=== PATIENT | female | born 1995 | race Two or more races ===

== ENCOUNTER 2024-05-17 18:56 | Emergency (ER) | payer MEDICAID, OTHER ==
[2024-05-17] MEDS ORDERED: DOCO200C4 PO (20:21)
== END 2024-05-17 19:10 | disposition left against medical advice (07) ==
LOC: ER 18:56
DX: O26.899 Other specified pregnancy related conditions, unspecified trimester (principal); R10.9 Unspecified abdominal pain; Z3A.00 Weeks of gestation of pregnancy not specified; Z53.21 Procedure and treatment not carried out due to patient leaving prior to being seen by health care provider

== ENCOUNTER 2024-05-17 19:41 | Observation (INO) | payer MEDICAID ==
[~2024-05-17] VITALS: Ht 154.9 cm; Wt 94.8 kg
[2024-05-17] MEDS ORDERED: DOCO200C4 PO (20:21)
== END 2024-05-17 21:35 | disposition home or self-care (01) ==
LOC: LDRP 19:41
PROVIDERS: ADMIT Obstetrics & Gynecology; ATTEND Obstetrics & Gynecology
DX: O26.892 Other specified pregnancy related conditions, second trimester (principal); R10.9 Unspecified abdominal pain; R05.9 Cough, unspecified; R09.81 Nasal congestion; Z3A.23 23 weeks gestation of pregnancy
CPT/HCPCS: 59025; 81002; 94760; G0378

== ENCOUNTER 2024-07-01 15:28 | Observation (INO) | payer MEDICAID ==
[~2024-07-01] VITALS: Ht 165.1 cm; Wt 90.7 kg
[~2024-07-01 15:28] MED LIST: DOCO200C4 PO
[2024-07-01] MEDS ORDERED: ONDANSETRON HCL 4 MG/2 ML VIAL IM ONE (16:30)
[2024-07-01] MEDS: LACTATED RINGER'S 1,000 ML IV ONE (16:45)
[2024-07-01] MEDS: ONDANSETRON HCL 4 MG/2 ML VIAL IV ONE (16:58)
== END 2024-07-01 17:42 | disposition home or self-care (01) ==
LOC: LDRP 15:28
PROVIDERS: ADMIT Obstetrics & Gynecology; ATTEND Obstetrics & Gynecology
DX: O36.8130 Decreased fetal movements, third trimester, not applicable or unspecified (principal); O21.2 Late vomiting of pregnancy; Z3A.29 29 weeks gestation of pregnancy
CPT/HCPCS: 59025; 76805; 76817; 81002; 96361; 96374; G0378; J2405; 96360

== ENCOUNTER 2024-09-07 19:59 | Observation (INO) | payer MEDICAID ==
--- NOTE | 2024-09-07 21:29 | DVHDS2 ---
Physician Discharge Progress N Final Diagnosis: Decreased movements Operations or Procedures: Operations or Procedures NST/BPP/PHILIP all WNL Nuchal cord seen PHILIP 8.1 cm Condition on Discharge: Stable Disposition: Home Discharge Instructions: Diet: Regular Activity: Light activity Follow Up/Referral: Repeat NST/BPP PHILIP in 3-4 days, trend PHILIP level Daily FKC, return if decreased FM Medications: N/A Follow Up Care: Discharge Statement: "Patient was advised to return to the ER or call 911 if any headaches, dizziness, shortness of breath, chest pain, abdominal pain, bleeding, fevers, or worsening of medical condition. Patient was counseled about treatment plan, medications, possible side effects, patientverbalized understanding. All questions were answered to the best of my ability. This discharge took greater then 30 minutes in planning, reviewing documentation, counseling the patient, and discussing with other team members." XAVI ROSSI DO Sep 07, 2024 21:28
--- NOTE | 2024-09-07 21:37 | DVH ---
ULTRASOUND BIOPHYSICAL PROFILE CLINICAL HISTORY: decreased movement COMPARISON: 07/01/2024 TECHNIQUE: Real-time grayscale, color flow and M-mode imaging of the gravid uterus is performed. FINDINGS: Single living intrauterine gestation. heart rate 151 beats per minute. Cephalic positioning. Nuchal cord is noted. Placenta is fundal. No definite evidence of abruption or previa at this time. Amniotic fluid index: 8.1cm Biophysical profile: 8 out of 8. (2 breathing, 2 activity, 2 tone, 2 PHILIP) IMPRESSION: Biophysical profile scoring 8 out of 8. Nuchal cord.
[2024-09-07] MEDS ORDERED: PREN-96 PO (22:32)
== END 2024-09-07 22:55 | disposition home or self-care (01) ==
LOC: LDRP 19:59
PROVIDERS: ADMIT Obstetrics & Gynecology; ATTEND Obstetrics & Gynecology
DX: O36.8130 Decreased fetal movements, third trimester, not applicable or unspecified (principal); Z3A.39 39 weeks gestation of pregnancy; Z79.899 Other long term (current) drug therapy
CPT/HCPCS: 59025; 76818; 81002; 94760; G0378

== ENCOUNTER 2024-09-10 14:35 | Inpatient (IN) | payer MEDICAID ==
[~2024-09-10] VITALS: Ht 154.9 cm; Wt 99.8 kg
[~2024-09-10 14:35] MED LIST changes: +PREN-96 PO
[2024-09-10] MEDS ORDERED: LIDOCAINE 2%HCL (LOCAL ANESTH.) INJ 20ML MDV IJ PRN (15:00)
[2024-09-10] MEDS ORDERED: BUTORPHANOL TARTRATE 2 MG/1 ML VIAL IV PRN ×2 (15:00)
--- NOTE | 2024-09-10 16:02 | DVH ---
BIOPHYSICAL PROFILE HISTORY: decreased movement TECHNIQUE: Multiple transabdominal real-time grayscale sonographic images through the gravid uterus of the fetus with duplex Doppler color flow and M-mode spectral analysis FINDINGS: BIOPHYSICAL PROFILE: breathing score: 2/2 movement score: 2/2 tone score: 2/2 Quantitative PHILIP score: 2/2 (PHILIP: 7.7 Cm.) Total score: 8/8 The cervix close Single live fetus in cephalic presentation. heart rate 145 beats per minute. placenta without previa or abruption IMPRESSION: 1. Biophysical profile score: 8/8
[2024-09-10 16:23] LABS: Basophils # (auto) 0 10 ^3/uL (0-0.2); Basophils % (auto) 0.2 % (0.0-2.0); Eosinophils # (auto) 0 10 ^3/uL (0-0.8); Eosinophils % (auto) 0.6 % (0.0-7.0); Hematocrit 37.7 % (36.0-46.0); Hemoglobin 12.5 g/dL (12.2-16.2); Lymphocytes # (auto) 1.4 10 ^3/uL (0.4-5.4); Lymphocytes % (auto) 15.9 % (10.0-50.0); Mean Corpuscular Hgb Conc. 33.1 g/dL (32.0-36.0); Mean Corpuscular Volume 81.7 fL (80.0-100.0); Monocytes # (auto) 0.7 10 ^3/uL (0-1.3); Monocytes % (auto) 8.4 % (0.0-12.0); Neutrophils # (auto) 6.6 10 ^3/uL (1.6-8.6); Neutrophils % (auto) 74.9 % (37.0-80.0); Platelet Count (auto) 240 10^3/uL (140-450); Red Blood Cells 4.61 10^6/uL (4.0-5.20); Red Cell Distribution Width 16.1 % (11.8-14.3); White Blood Cell 8.8 10^3/uL (4.4-10.8)
[2024-09-10 16:36] LABS: INR 0.92 (0.9-1.15); Partial Thromboplastin Time 25.8 SEC (24.5-34.5); Prothrombin Time 9.8 sec (9.3-11.8)
[2024-09-10 16:41] LABS: Alanine Aminotransferase 17 U/L (7-40); Anion Gap 8 (5-15); Aspartate Aminotransferase 24 U/L (13-40); BUN/Creatinine Ratio 14.8 (10.0-20.0); Calcium 9.8 mg/dL (8.7-10.4); Carbon Dioxide 23 mmol/L (20-31); Potassium 3.9 mmol/L (3.5-5.1); Sodium 138 mmol/L (136-145); Total Protein 6.8 g/dL (5.7-8.2)
--- NOTE | 2024-09-10 16:41 | DVHHP2 ---
OB CC & HPI Date Date of Admission: Sep 10, 2024 Patient Identification: : 3 Para: 2 EDC: Sep 10, 2024 EGA: 40.0 Chief Complaints: Reason for admission: induction of labor History of Present Complaints Scheduled Induction by primary OB MD, Dr. Mejia due to borderline PHILIP on last visit and slightly elevated BP's. BP's are normal now, and no symptoms of pre-eclampsia. PIH labs are pending. PHILIP is 7.7 cm, denies PROM. Has had normal growth. GBS neg Past Medical History Cardiac: No pertinent Hx Pulmonary: No pertinent Hx Central Nervous System: No pertinent Hx GI: No pertinent Hx Hemotology/Oncology: No pertinent Hx Hepatobiliary: No pertinent Hx Psychiatric: No pertinent Hx Musculoskeletal: No pertinent Hx Rheumotologic: No pertinent Hx Infectious Disease: No peritnent Hx ENT: No pertinent Hx Renal/: No pertinent Hx Endocrine: No pertinent Hx Dermatology: No pertinent Hx Past Surgical History: No pertinent Hx OB History OB History Care: Good Care Ultrasounds: Normal mid trimester US Obstetrical Complications: None Medical Complications: None Allergies: Coded Allergies: NO KNOWN ALLERGIES (Unverified , 05/17/24) Home Meds Reported Medications Vit W/ Ferrous Fumara ( One Daily) Daily Tab, 1 TAB PO DAILY, #90 TAB 3 Refills 09/07/24 Docosahexaenoic Acid ( DHA) 200 Mg Cap, 200 MG PO, CAP 05/17/24 Current Medications Current Medications Medications (Trade) Dose Ordered Sig/Tomi Route PRN Reason Start Time Stop Time Status Last Admin Lactated Ringer's 1,000 ml @ 125 mls/hr Q8H IV 09/10/24 15:00 UNV Freddie Merlyn (Tucks) 1 pad PRN PRN TOP PERINEAL AREA DISCOMFORT 09/10/24 15:00 UNV Sodium Lauryl Sulfate (Phisoderm) 240 ml PRN PRN TOP PERINEAL AREA DISCOMFORT 09/10/24 15:00 UNV Benzocaine (Dermoplast) 1 applic PRN PRN TOP PERINEAL AREA DISCOMFORT 09/10/24 15:00 UNV Butorphanol Tartrate (Stadol Injection) 1 mg Q4HPRN PRN IV MODERATE PAIN (4-6 PAIN SCALE) 09/10/24 15:00 UNV Butorphanol Tartrate (Stadol Injection) 2 mg Q4HPRN PRN IV SEVERE PAIN (7-10 PAIN SCALE) 09/10/24 15:00 UNV Misoprostol (Cytotec) 50 mcg Q4HPRN PRN PO CERVICAL RIPENING 09/10/24 15:00 UNV Lidocaine HCl (Xylocaine) 20 ml ONCE PRN IJ PERINEAL AREA DISCOMFORT 09/10/24 15:00 UNV Family & Social History Family/Social History Rubella: immune RPR/VDRL: Negative GBS Status: Negative HBsAG: Negative Review of Systems Constitutional: No symptom reported Ears, Nose, & Throat: No symptom reported Eyes: No symptom reported Pulmonary/Respiratory: No symptom reported Cardiovascular: No symptom reported Gastrointestinal: No symptom reported Genitourinary: No symptom reported Musculoskeletal: No symptom reported Skin: No symptom reported Psychiatric: No symptom reported Endocrine: No symptom reported Hemotologic/Lymphatic: No symptom reported OB Admission Exam Physical Exam Vitals: Afeb VS stable HEENT: TMs Normal, Fontanelles Normal, Nasal Mucosa Normal, Eyes non-injected, Oropharynx Normal, PERRLA, Moist Membranes, EOMI Heart: Rhythm Normal Lungs: Clear Abdomen: Non tender Extremities: Normal Reflexes: Normal Pelvic Exam: RN exam 1/ 40%/-2 VTX Cervical Dilatation: 1cm Station: -2 Heart Rate: 130's Accelerations: Accelerations Present Decelerations: No Decelerations Short Term Variability: Present Chummer Variability: Average (6-25) Contractions on Admission: None OB Plan Plan Admitting Diagnosis: Induction of labor , IUP 40 wk PHILIP 7.7 cm, no PROM GBS neg Plan: Induction Induction Methd: Misoprostol protocol Other Plan: Admit for labor induction per Dr. Mejia for "borderline PHILIP" R/B/A discussed w/ patient, Informed consent obtained indications for Vacuum delivery, or C/S discussed. XAVI ROSSI DO Sep 10, 2024 16:41
[2024-09-10] MEDS ORDERED: LACT. RINGERS/OXYTOCIN 20UNITS 500 ML IV ONE ×2 (16:45→17:15)
[2024-09-10 16:49] LABS: Alkaline Phosphatase 253 U/L (46-116); Bilirubin, Total 0.3 mg/dL (0.2-1.0); Blood Urea Nitrogen 8 mg/dL (9-23); Chloride 107 mmol/L (98-107); Glucose 71 mg/dL (74-106)
[2024-09-10] MEDS: miSOPROStol 50 MCG per PRE-CUT 1/2 TAB PO PRN (17:07)
[2024-09-10 17:36] LABS: Urine Bacteria FEW /hpf (None Seen); Urine Blood Negative /uL (Negative); Urine Clarity Clear (Clear); Urine Color Colorless (Yellow); Urine Protein, UAD Negative (Negative); Urine Specific Gravity 1.005 (1.001-1.035); Urine Squamous Epithelial Cell FEW /hpf (<5); Urine Urobilinogen Normal (Negative); Urine WBC 1 /hpf (0 - 5); Urine pH 5.5 (5.0-9.0)
[2024-09-10 17:45] LABS: Amphetamine Screen, Urine Neg (NEGATIVE); Barbiturate Scree,Urine Neg (NEGATIVE); Benzodiazephine Screen, Urine Neg (NEGATIVE); Cannabinoid Screen, Urine Neg (NEGATIVE); Cocaine Screen, Urine Neg (NEGATIVE); Opiate Scree,Urine Neg (NEGATIVE); Phencyclidine Screen, Urine Neg (NEGATIVE)
[2024-09-10 18:57] LABS: Creatinine, Urine 24.47 mg/dL (30.0-125.0); Urine Protein/Creatinine Ratio 0.29
[2024-09-10] MEDS ORDERED: TERBUTALINE SULFATE 1 MG/ML 1ML VIAL SC PRN (23:45)
[2024-09-11] VITALS (11 sets, daily range): BP systolic 95–130; BP diastolic 53–94; PULSE 73–88; RESP 16–18; TEMP 97.6–98.4; O2SAT 95–99
--- NOTE | 2024-09-11 05:58 | DVHPN2 ---
OB Labor Progress Note Date and Time Seen Date Seen: Sep 11, 2024 Time Seen: 05:54 Subjective Patient reports: No new complaints Subjective Comment Induction of labor 40+ wk Moderate contractions , mild pain Objective Vital Signs Afeb VS stable Monitoring Method Monitoring Method: External Heart Rate Heart Rate Baseline: 120 Heart Rate Variability: Moderate Presence of FHR Accelerations: Yes Presence of FHR Decelerations: No Contractions Contractions Frequency: Other (3 to 4 in 10 mins) Contractions Intensity: Mild Contractions Resting Tone: Relaxed Membranes Membranes: Intact Vaginal Exam Vag Exam Deferred: Yes (RN Exam: 1-2/40%/ -3) Vaginal Exam Station: -3 Vaginal Exam Presentation: VTX Vaginal Exam Show: None Medications Medications - Pitocin: No Lab Results Lab Results Current Medications Medications (Trade) Dose Ordered Sig/Tomi Start Time Stop Time Status Last Admin Dose Admin Lactated Ringer's 1,000 ml @ 125 mls/hr Q8H 09/10/24 15:00 Freddie Elliottel (Tucks) 1 pad PRN PRN 09/10/24 15:00 Sodium Lauryl Sulfate (Phisoderm) 240 ml PRN PRN 09/10/24 15:00 Benzocaine (Dermoplast) 1 applic PRN PRN 09/10/24 15:00 Butorphanol Tartrate (Stadol Injection) 1 mg Q4HPRN PRN 09/10/24 15:00 Butorphanol Tartrate (Stadol Injection) 2 mg Q4HPRN PRN 09/10/24 15:00 Misoprostol (Cytotec) 50 mcg Q4HPRN PRN 09/10/24 15:00 09/11/24 01:22 50 MCG Lidocaine HCl (Xylocaine) 20 ml ONCE PRN 09/10/24 15:00 Oxytocin 500 ml @ 999 mls/hr Q31M ONCE 09/10/24 16:45 09/10/24 17:15 DC Oxytocin 500 ml @ 125 mls/hr Q4H ONCE 09/10/24 17:15 09/10/24 21:14 DC Oxytocin 1,000 ml @ 6 ml/hr Q24H 09/10/24 23:45 Terbutaline Sulfate (Brethine Inj) 0.25 mg ONCE PRN 09/10/24 23:45 Laboratory Tests Test 09/10/24 15:55 09/10/24 14:58 09/10/24 14:48 Range/Units White Blood Count 8.8 4.4-10.8 10^3/uL Red Blood Count 4.61 4.0-5.20 10^6/uL Hemoglobin 12.5 12.2-16.2 g/dL Hematocrit 37.7 36.0-46.0 % Mean Corpuscular Volume 81.7 80.0-100.0 fL Mean Corpuscular Hemoglobin 27.0 L 28.0-32.0 pg Mean Corpuscular Hemoglobin Concent 33.1 32.0-36.0 g/dL Red Cell Distribution Width 16.1 H 11.8-14.3 % Platelet Count 240 140-450 10^3/uL Mean Platelet Volume 9.4 6.9-10.8 fL Neutrophils (%) (Auto) 74.9 37.0-80.0 % Lymphocytes (%) (Auto) 15.9 10.0-50.0 % Monocytes (%) (Auto) 8.4 0.0-12.0 % Eosinophils (%) (Auto) 0.6 0.0-7.0 % Basophils (%) (Auto) 0.2 0.0-2.0 % Neutrophils # (Auto) 6.6 1.6-8.6 10 ^3/uL Lymphocytes # (Auto) 1.4 0.4-5.4 10 ^3/uL Monocytes # (Auto) 0.7 0-1.3 10 ^3/uL Eosinophils # (Auto) 0 0-0.8 10 ^3/uL Basophils # (Auto) 0 0-0.2 10 ^3/uL Nucleated Red Blood Cells 0.0 % Prothrombin Time 9.8 9.3-11.8 sec Prothrombin Time INR 0.92 0.9-1.15 Activated Partial Thromboplast Time 25.8 24.5-34.5 SEC Sodium Level 138 136-145 mmol/L Potassium Level 3.9 3.5-5.1 mmol/L Chloride Level 107 98-107 mmol/L Carbon Dioxide Level 23 20-31 mmol/L Anion Gap 8 5-15 Blood Urea Nitrogen 8 L 9-23 mg/dL Creatinine 0.54 L 0.550-1.02 mg/dL Glomerular Filtration Rate Calc 127 >90 mL/min BUN/Creatinine Ratio 14.8 10.0-20.0 Serum Glucose 71 L 74-106 mg/dL Uric Acid 4.0 3.1-7.8 mg/dL Calcium Level 9.8 8.7-10.4 mg/dL Total Bilirubin 0.3 0.2-1.0 mg/dL Aspartate Amino Transferase (AST) 24 13-40 U/L Alanine Aminotransferase (ALT) 17 7-40 U/L Alkaline Phosphatase 253 H 46-116 U/L Total Protein 6.8 5.7-8.2 g/dL Albumin 4.0 3.2-4.8 g/dL Rapid Plasma Reagin Pending Treponema pallidum Ab (TP-PA) Pending Hepatitis C Antibody Negative Negative Urine Color Colorless Yellow Urine Clarity Clear Clear Urine pH 5.5 5.0-9.0 Urine Specific [place] 1.005 1.001-1.035 Urine Protein Negative Negative Urine Ketones Negative Negative Urine Blood Negative Negative /uL Urine Nitrite Negative Negative Urine Bilirubin Negative Negative Urine Urobilinogen Normal Negative mg/dL Urine Leukocyte Esterase Trace Negative /uL Urine RBC 1 0 - 4 /hpf Urine WBC 1 0 - 5 /hpf Urine Squamous Epithelial Cells Few <5 /hpf Urine Bacteria Few H None Seen /hpf Urine Glucose Normal Normal mg/dL Urine Opiates Screen Neg NEGATIVE Urine Fentanyl Screen Neg NEGATIVE Urine Barbiturates Screen Neg NEGATIVE Urine Phencyclidine Screen Neg NEGATIVE Urine Amphetamines Screen Neg NEGATIVE Urine Benzodiazepines Screen Neg NEGATIVE Urine Cocaine Screen Neg NEGATIVE Urine Cannabinoids Screen Neg NEGATIVE Urine Creatinine 24.47 L 30.0-125.0 mg/dL Urine Protein/Creatinine Ratio 0.29 Urine Total Protein 7.0 1-14 mg/dL Assessment Assessment Term IUP 40 wk, Induction of labor Plan Plan Continue current care IV pitocin once feasible Pain control Care endorsed to oncoming OB team, Dr. Mejia Plan discussed with: Patient XAVI ROSSI DO Sep 11, 2024 05:58
[2024-09-11] MEDS: LACTATED RINGER'S 1,000 ML IV SCH (06:49)
[2024-09-11] MEDS: LACT. RINGERS/OXYTOCIN 20UNITS 1,000 ML IV SCH (06:51)
[2024-09-11] MEDS: DERMOPLAST 60ML BOTTLE TOP PRN (06:53)
[2024-09-11] MEDS: PHISODERM TOP SOLN 240ML BTL TOP PRN (06:53)
[2024-09-11] MEDS: WITCH HAZEL-GLYCERIN PAD TOP PRN (06:53)
--- NOTE | 2024-09-11 07:27 | DVHPN2 ---
Chief Complaints Patient reports: No new complaints Nursing reports: No new complaints Objective Medications Current Medications Medications (Trade) Dose Ordered Sig/Tomi Route PRN Reason Start Time Stop Time Status Last Admin Benzocaine (Dermoplast) 1 applic PRN PRN TOP PERINEAL AREA DISCOMFORT 09/10/24 15:00 09/11/24 06:53 Butorphanol Tartrate (Stadol Injection) 1 mg Q4HPRN PRN IV MODERATE PAIN (4-6 PAIN SCALE) 09/10/24 15:00 Butorphanol Tartrate (Stadol Injection) 2 mg Q4HPRN PRN IV SEVERE PAIN (7-10 PAIN SCALE) 09/10/24 15:00 Lactated Ringer's 1,000 ml @ 125 mls/hr Q8H IV 09/10/24 15:00 09/11/24 06:49 Lidocaine HCl (Xylocaine) 20 ml ONCE PRN IJ PERINEAL AREA DISCOMFORT 09/10/24 15:00 Misoprostol (Cytotec) 50 mcg Q4HPRN PRN PO CERVICAL RIPENING 09/10/24 15:00 09/11/24 01:22 Oxytocin 1,000 ml @ 6 ml/hr Q24H IV 09/10/24 23:45 09/11/24 06:51 Sodium Lauryl Sulfate (Phisoderm) 240 ml PRN PRN TOP PERINEAL AREA DISCOMFORT 09/10/24 15:00 09/11/24 06:53 Terbutaline Sulfate (Brethine Inj) 0.25 mg ONCE PRN SC Uterine tachysystole 09/10/24 23:45 Freddie Zuleta (Juvenalcks) 1 pad PRN PRN TOP PERINEAL AREA DISCOMFORT 09/10/24 15:00 09/11/24 06:53 Others ve-3cm/80/-2 Studies Laboratory Tests 09/10/24 15:55 Test 09/10/24 15:55 Range/Units Serum Glucose 71 L 74-106 mg/dL Ass/Plan Assessment labor Plan start JESSENIA Nation DO Sep 11, 2024 07:27
[2024-09-11 08:06] LABS: RPR Non Reactive (Non Reactive)
[2024-09-11] MEDS ORDERED: LIDOCAINE HCL 2 %PF INJ 10ML AMP IJ ONE (11:45)
[2024-09-11] MEDS ORDERED: NALOXONE HCL 0.4 MG/ML VIAL IV ONE (11:45)
[2024-09-11] MEDS ORDERED: ePHEDrine SULFATE 50 MG/ML AMP IV ONE (11:45)
[2024-09-11] MEDS: LACTATED RINGER'S 1,000 ML IV ONE (12:04)
--- NOTE | 2024-09-11 12:16 | DVHPN2 ---
Chief Complaints Patient reports: No new complaints Nursing reports: No new complaints Objective Medications Current Medications Medications (Trade) Dose Ordered Sig/Tomi Route PRN Reason Start Time Stop Time Status Last Admin Benzocaine (Dermoplast) 1 applic PRN PRN TOP PERINEAL AREA DISCOMFORT 09/10/24 15:00 09/11/24 06:53 Butorphanol Tartrate (Stadol Injection) 1 mg Q4HPRN PRN IV MODERATE PAIN (4-6 PAIN SCALE) 09/10/24 15:00 Butorphanol Tartrate (Stadol Injection) 2 mg Q4HPRN PRN IV SEVERE PAIN (7-10 PAIN SCALE) 09/10/24 15:00 Lactated Ringer's 1,000 ml @ 125 mls/hr Q8H IV 09/10/24 15:00 09/11/24 06:49 Lidocaine HCl (Xylocaine) 20 ml ONCE PRN IJ PERINEAL AREA DISCOMFORT 09/10/24 15:00 Misoprostol (Cytotec) 50 mcg Q4HPRN PRN PO CERVICAL RIPENING 09/10/24 15:00 09/11/24 01:22 Oxytocin 1,000 ml @ 6 ml/hr Q24H IV 09/10/24 23:45 09/11/24 06:51 Sodium Lauryl Sulfate (Phisoderm) 240 ml PRN PRN TOP PERINEAL AREA DISCOMFORT 09/10/24 15:00 09/11/24 06:53 Terbutaline Sulfate (Brethine Inj) 0.25 mg ONCE PRN SC Uterine tachysystole 09/10/24 23:45 Freddie Zuleta (Juvenalcklaureen) 1 pad PRN PRN TOP PERINEAL AREA DISCOMFORT 09/10/24 15:00 09/11/24 06:53 Others ve-5cm/80/-2 Studies Laboratory Tests 09/10/24 15:55 Test 09/10/24 15:55 Range/Units Serum Glucose 71 L 74-106 mg/dL Ass/Plan Assessment labor Plan getting epidural JESSENIA TONY DO Sep 11, 2024 12:16
[2024-09-11] MEDS: fentaNYL CITRATE 100 MCG/2 ML VL IV ONE (12:23)
[2024-09-11] MEDS ORDERED: ROPIVACAINE HCL 400mg/200ml BAG (2mg/ml) EPI ONE (12:25)
--- NOTE | 2024-09-11 12:59 | EPIDURAL ---
Anesthesia Procedural Note - Epidural Informed consent obtained?: Yes Medication Administered: Fentanyl 100 mcg Sterile prept drape: Yes Spinal level of insertion: L4-L5 Test dose of lidocaine & Epine: Negative Infusion started: Yes Start time: 12:00 End time: 12:25 Procedure description Procedure description: Called for labor analgesia. Patient examined, chart reviewed and history taken. Patient is , here for induction of labor at 40+1 weeks gestation. Requesting epidural. Informed consent for CSE obtained at 1203 (BP 150/73 HR 71 spO2 99). Sitting position, sterile prep and drape. Time out done. L4-5 space infiltrated with 1% lido at 1205. Epidural needle placed with KIM at 7cm. 25G spinal needle +clear CSF. 15mcg fentanyl IT at 1209 (BP 139/61 HR 75 spO2 98). Epidural cathet er secured at 12cm. Aspiration and test dose (3cc 1.5% lido with epi) at 1211 (BP 132/62 HR 70 spO2 99). 85 mcg fentanyl given via epidural catheter at 1212 (BP 131/63 HR 67 spO2 99). Patient reports good pain relief. 0.2% ropivacaine infusion started at 1222 (BP 114/63 HR 57 spO2 98). Will follow as needed. ROSA DENNIS MD Sep 11, 2024 12:59
[2024-09-11] MEDS ORDERED: MORPHINE SULF PF 5 MG/10 ML VIAL ONE (13:53)
[2024-09-11] MEDS ORDERED: DOCU-94 PO (13:53)
[2024-09-11] MEDS ORDERED: HYDR-4072 PO (13:53)
[2024-09-11] MEDS ORDERED: IBUP-1456 PO (13:53)
[2024-09-11] MEDS ORDERED: ePHEDrine SULFATE 50 MG/ML AMP ONE (13:54)
[2024-09-11] MEDS ORDERED: GLYCOPYRROLATE 0.2 MG/ML 1ML VIAL ONE (13:54)
[2024-09-11] MEDS ORDERED: fentaNYL CITRATE 100 MCG/2 ML VL ONE (13:54)
[2024-09-11] MEDS ORDERED: ONDANSETRON HCL 4 MG/2 ML VIAL ONE (13:54)
[2024-09-11] MEDS ORDERED: oxyTOCIN 10 UNIT/ML 10ML VIAL ONE (13:54)
[2024-09-11] MEDS ORDERED: KETOROLAC TROMETH 30 MG/ML 1ML VIAL ONE (13:54)
[2024-09-11] MEDS ORDERED: ceFAZolin 2 GM/D5W50ml 50 ML IV ONE (14:00)
--- NOTE | 2024-09-11 14:07 | DVHHP ---
ADMIT DATE: 09/10/2024 CHIEF COMPLAINT: Nonreassuring heart tracing, repetitive heart deceleration. HISTORY OF PRESENT ILLNESS: The patient is a 29-year-old 3, para 2 with EDC of 09/10, estimated gestational age of 40+ weeks, admitted for induction of labor. Due to low fluid, the patient underwent induction, received 2 Cytotecs followed by Pitocin, but started having bradycardia and deceleration. Amnioinfusion was started; however, the patient continued. Subsequently, the patient was noted to be at 5 cm, -2. The patient was taken for primary secondary to nonreassuring heart tracing. PAST MEDICAL HISTORY: None. PAST SURGICAL HISTORY: None. SOCIAL HISTORY: None. FAMILY HISTORY: None. OBSTETRIC AND GYNECOLOGIC HISTORY: Two normal vaginal deliveries. Blood type A positive. REVIEW OF SYSTEMS: Consistent with HPI. PHYSICAL EXAMINATION: VITAL SIGNS: Stable, afebrile. HEENT: Within normal limits. CARDIOVASCULAR: Regular rate and rhythm. LUNGS: Clear to auscultation. BREASTS: Symmetrical. No masses. ABDOMEN: Gravid. Positive heart. PELVIC: 5, 60, -2. EXTREMITIES: No clubbing, cyanosis or edema. IMPRESSION: * Intrauterine at 40+ weeks, with nonreassuring heart tracing. * Repetitive late deceleration. PLAN: Primary low transverse section. Informed consent obtained. Risks, complication of surgery including infection, bleeding, hematoma formation, injury to bowel, bladder or surrounding organs; possibility of pulmonary embolism or risk of anesthesia discussed with the patient. Options reviewed. All questions answered. The patient fully understands. She wishes to proceed with planned procedure. Mraie Mejia DO MZ/ARV TID: [id number] RECEIPT: [id number]
[2024-09-11] MEDS ORDERED: ONDANSETRON HCL 4 MG/2 ML VIAL IV PRN (14:15)
[2024-09-11] MEDS ORDERED: LACT. RINGERS/OXYTOCIN 20UNITS 1,000 ML IV ONE (14:15)
[2024-09-11] MEDS: CARBOPROST TROMETHAMINE 250 MCG/1ML VIAL IM ONE (14:45)
[2024-09-11] MEDS ORDERED: MEPERIDINE HCL (25 MG/ML) 1ML VIAL ONE (14:52)
--- NOTE | 2024-09-11 15:45 | DVHOP2 ---
Operative Report DATE OF OPERATION: 09/11/24 PREOPERATIVE DIAGNOSES: Term induction of labor for oligo,nonrassuring fht ,fetus at risk, POSTOPERATIVE DIAGNOSES:same,op,meconium,nuchal cordx1,compound presentatio n,bilat para tubal cysts SURGEON: Marie Mejia D.O./bertrand ANESTHESIOLOGIST: yoanna TYPE OF ANESTHESIA : spinal CONSENT: The patient was informed of the risks and benefits of the procedure. The patient was informed of the risks and benefits of the procedure. These include but are not limited to , complications of anesthesia, postoperative infection, incomplete relief of symptoms, recurrence of symptoms, damage to blood vessels, nerves and tendons, deep venous thrombosis, pulmonary embolism and possible need for repeat surgery in the future. FINDINGS: Baby [b] with Apgars of [8] and [9]. Grossly normal appearing tubes a nd ovaries.meconium,nuchal cordx1,compound presentation,bilat tubal cysts PROCEDURES: Primary low transverse section.bilateral tubal cystectomy PROCEDURE IN DETAIL: The patient was taken to the operating room. She already had an epidural in place. She was then placed in supine position with a leftward tilt. A Pfannenstiel skin incision was made 2 cm above the symphysis pubis. This incision was carried to the underlying layer of fascia. The fascia was nicked in the midline. The incision was extended laterally. The superior aspect of the fascial incision was grasped and elevated. The same procedure was done to the inferior aspect of the fascial incision. The rectus muscles were then in the midline. Peritoneum was identified and entered. Peritoneal incision was extended superiorly and inferiorly with good visualization of the bladder. Bladder blade was inserted. Vesicouterine peritoneum was identified and entered. Lower uterine segment was incised in a transverse fashion. The was delivered from vertex presentation. was baby [b] with Apgars [8] and [9]. Placenta was then removed manually. meconium fld noted,nuchal cordx1. Uterus was exteriorized and cleared of all clots and debris. The incision was repaired using 0 Vicryl in a double-layered fashion. No bleeding was noted. Uterus was then returned to the abdomen. The gutters were cleared off all clots and debris. bilat para tubal cystectomy was donespecimen was sent to pathology. Peritoneum was closed using 0 Vicryl, fascia was closed using 0 Maxon, and skin was closed using valentino. The patient tolerated the procedure well. She was taken to the recovery room in stable condition. ESTIMATED BLOOD LOSS: Estimated blood loss was noted to be 800 mL. MARIE MEJIA DO Sep 11, 2024 15:45
--- NOTE | 2024-09-11 15:47 | POSTOP ---
Post-Operative Note Post-Operative Note Preop Diagnosis iup at 40wks iol,fetus at risk,nonreassuring fht Postop Diagnosis: same,op,mec,nuchal cord,bilat para tubal cyst Operation performed pltcs with bilat tubal cystectomy Specimen baby boy,apgars 8-9,deanna tubal cysts Anesthesia: Regional Anesthesiologist: yoanna Blood Loss(fluid mgmt) 800ml Surgeon Marie Mejia [employer] bertrand Eason davis Complications & Mgmt none Date 09/11/24 Time 15:45 MARIE MEJIA DO Sep 11, 2024 15:47
[2024-09-11] MEDS ORDERED: NALOXONE HCL 0.4 MG/ML VIAL IV PRN (16:15)
[2024-09-11] MEDS ORDERED: diphenhdrAMINE HCL 50 MG/1 ML VL IV PRN (16:15)
[2024-09-11] MEDS ORDERED: KETOROLAC TROMETH 30 MG/ML 1ML VIAL IV PRN (16:15)
[2024-09-11] MEDS ORDERED: DexAMETHasone SOD PHOS 10MG/1ML VIAL INJ IV PRN (16:15)
[2024-09-11] MEDS: ceFAZolin 2 GM/D5W50ml 50 ML IV ONE (18:00)
[2024-09-11] MEDS: LIDOCAINE HCL 2 %PF INJ 10ML AMP IJ ONE (18:00)
[2024-09-11] MEDS: DIPHENOXYLATE W/ATROPINE 2.5 MG TAB ONE (18:00)
[2024-09-11] MEDS: ONDANSETRON HCL 4 MG/2 ML VIAL IV PRN (18:13)
[2024-09-11] MEDS: ACETAMINOPHEN IV 1000 MG/100ML (10MG/ML) IV SCH (18:14)
[2024-09-11] MEDS: METOCLOPRAMIDE HCL 5MG/ml INJ 2ml VIAL IV PRN (20:55)
[2024-09-11] MEDS: ceFAZolin 1GM/50ML 50 ML IV SCH (22:17)
[2024-09-11 23:18] LABS: Basophils # (auto) 0 10 ^3/uL (0-0.2); Basophils % (auto) 0.1 % (0.0-2.0); Eosinophils # (auto) 0 10 ^3/uL (0-0.8); Hematocrit 31.9 % (36.0-46.0); Hemoglobin 10.5 g/dL (12.2-16.2); Lymphocytes # (auto) 0.6 10 ^3/uL (0.4-5.4); Lymphocytes % (auto) 3.7 % (10.0-50.0); Mean Corpuscular Hgb Conc. 32.8 g/dL (32.0-36.0); Mean Corpuscular Volume 82.2 fL (80.0-100.0); Monocytes # (auto) 0.5 10 ^3/uL (0-1.3); Monocytes % (auto) 2.7 % (0.0-12.0); Neutrophils # (auto) 15.6 10 ^3/uL (1.6-8.6); Neutrophils % (auto) 93.5 % (37.0-80.0); Platelet Count (auto) 205 10^3/uL (140-450); Red Blood Cells 3.88 10^6/uL (4.0-5.20); Red Cell Distribution Width 16.2 % (11.8-14.3); White Blood Cell 16.7 10^3/uL (4.4-10.8)
[2024-09-12] VITALS (16 sets, daily range): BP systolic 96–124; BP diastolic 50–74; PULSE 69–90; RESP 15–20; TEMP 97.7–98.9; O2SAT 94–100
--- NOTE | 2024-09-12 07:52 | DVHPN2 ---
Chief Complaints Patient reports: No new complaints Nursing reports: No new complaints Objective Vitals Vital Signs Date Time Temp Pulse Resp B/P (MAP) Pulse Ox O2 Delivery O2 Flow Rate FiO2 09/12/24 07:00 18 Room Air 09/12/24 06:00 72 99/65 (76) 97 09/12/24 03:00 98.9 98.9 09/11/24 15:46 0 09/11/24 15:46 99 Medications Current Medications Medications (Trade) Dose Ordered Sig/Tomi Route PRN Reason Start Time Stop Time Status Last Admin Acetaminophen (Ofirmev) 1,000 mg Q8HR IV 09/11/24 22:00 09/12/24 14:01 09/12/24 02:38 Cefazolin Sodium 50 ml @ 100 mls/hr Q8H IV 09/11/24 22:00 09/12/24 14:29 09/12/24 06:33 Diphenhydramine HCl (Benadryl Injection) 25 mg Q4HP PRN IV FOR ITCHING 09/11/24 16:15 Metoclopramide HCl (Reglan Injection) 10 mg Q8HR PRN IV NAUSEA / VOMITING 09/11/24 19:45 09/11/24 20:55 General: Normal Neck: No thyromegaly Lungs: Normal Cardiovascular: Normal Abdominal: Soft Extremities: Normal Studies Laboratory Tests 09/11/24 22:45 09/10/24 15:55 Test 09/10/24 15:55 Range/Units Serum Glucose 71 L 74-106 mg/dL Ass/Plan Assessment s/p pcs Plan supportive care JESSENIA TONY DO Sep 12, 2024 07:52
[2024-09-12] MEDS ORDERED: BISACODYL 10 MG RECT SUPP PR PRN (08:30)
[2024-09-12] MEDS ORDERED: HYDROcodone-ACET 5/325MG TAB PO PRN (08:30)
[2024-09-12] MEDS: IBUPROFEN 800 MG TAB PO PRN (09:39)
[2024-09-12] MEDS: DOCUSATE CALCIUM 240 MG CAP PO SCH (09:39)
[2024-09-12] MEDS: DOCUSATE SOD 100 MG CAP PO SCH (09:39)
[2024-09-12] MEDS: SIMETHICONE 80 MG CHEWABLE TABLET PO SCH (11:59)
[2024-09-12] MEDS: HYDROcodone-ACET 5/325MG TAB PO PRN (22:38)
[2024-09-13 03:00] VITALS: BP 127/74; PULSE 80; RESP 18; TEMP 98.4; O2SAT 100
[2024-09-13 06:45] VITALS: BP 115/74; PULSE 82; RESP 16; TEMP 98.2; O2SAT 98
[2024-09-13] MEDS ORDERED: IBUP-1456 PO (07:40)
[2024-09-13] MEDS ORDERED: FER325T PO (07:40)
--- NOTE | 2024-09-13 07:42 | DVHPN2 ---
Progress Note Date Seen: Sep 13, 2024 Subjective S: bleeding is less, eating food without issues, denies lightheaded/dizziness, pain well controlled with oral medications, no concerns with urinating, passing flatus, no BM yet, ambulating well, /formula, denies CID/vision changes/RUQ pain vital signs Vital Sign Date Time Temp Pulse Resp B/P (MAP) Pulse Ox O2 Delivery O2 Flow Rate FiO2 09/13/24 06:54 Room Air 09/13/24 06:45 98.2 82 16 115/74 (88) 98 98.2 09/11/24 15:46 0 09/11/24 15:46 99 Total Intake and Output 09/12/24 09/12/24 09/13/24 15:00 23:00 07:00 Output Total 950 ml 900 ml Balance -950 ml -900 ml medications Current Medications Medications Dose Ordered Sig/Tomi Route Start Time Stop Time Status Last Admin Dose Admin Lactated Ringer's 1,000 ml @ 125 mls/hr Q8H IV 09/10/24 15:00 09/11/24 20:54 125 MLS/HR Witmary ellen Merlyn 1 pad PRN PRN TOP 09/10/24 15:00 09/11/24 06:53 1 PAD Sodium Lauryl Sulfate 240 ml PRN PRN TOP 09/10/24 15:00 09/11/24 06:53 240 ML Benzocaine 1 applic PRN PRN TOP 09/10/24 15:00 09/11/24 06:53 1 APPLIC Diphenhydramine HCl 25 mg Q4HP PRN IV 09/11/24 16:15 Metoclopramide HCl 10 mg Q8HR PRN IV 09/11/24 19:45 09/11/24 20:55 10 MG Docusate Calcium 240 mg DAILY PO 09/12/24 10:00 09/12/24 09:39 240 MG Docusate Sodium 100 mg Q12HR PO 09/12/24 10:00 09/12/24 22:38 100 MG Dimethicone 80 mg QID PO 09/12/24 12:00 09/12/24 22:38 80 MG Bisacodyl 10 mg DAILYP PRN WI 09/12/24 08:30 Ibuprofen 800 mg Q8HP PRN PO 09/12/24 08:30 09/12/24 18:38 800 MG Acetaminophen/ Hydrocodone Bitart 1 tab Q4HPRN PRN PO 09/12/24 08:30 09/13/24 03:00 1 TAB Acetaminophen/ Hydrocodone Bitart 2 tab Q4HPRN PRN PO 09/12/24 08:30 laboratory and microbiology Laboratory Tests 09/11/24 22:45 09/10/24 15:55 Test 09/10/24 15:55 Range/Units Serum Glucose 71 L 74-106 mg/dL Objective O: VSS Chest: heart sounds normal and lung sounds clear bilaterally Abd: soft, non-tender, fundus 1 below U/firm/midline, active bowel sounds, no rebound or guarding Incision: dermabond open to air, clean/dry/intact, edges well approximated Ext: 1+ BLE edema, Non-tender, 2+ BLE DTRs Lochia: minimal See lab results Problems(with codes): (1) Precipitous drop in hematocrit (2) S/P primary low transverse Assessment/Plan A: 29yo now POD#2 s/p primary Rh+ Rubella Immune /formula Pain control with PO medications Bowel regimen P: D/C home today Rx sent to pharmacy precautions and preeclampsia warning signs reviewed F/U with Dr. Mejia in 1 week Plan discussed with: Patient SONUROBYDIMITRY EATON Sep 13, 2024 07:42
--- NOTE | 2024-09-13 07:43 | DVHDS2 ---
Obstetrics Discharge Summary Obstetrics Discharge Summary Date of Admission: Sep 10, 2024 Date of Discharge: Sep 13, 2024 Reason For Admission: Induction of Labor (borderline low PHILIP) Procedures: NST, Ultrasound Intrapartum Procedures: (primary LTCS), Others (bilateral tubal cystectomy) Procedures: Antibiotics, Hct/date: (09/11/24), Hgb/date: (09/11/24) Operative Complicat: None Discharge Diagnosis: Term -Delivered, Failed Induction Discharge Information: Activity (as tolerated, no heavy lifting and nothing in the vagina for 6 weeks), Diet (Routine), Medications (Rx sent), Instructions (Routine), Discharge to (Home), Accompanied by (partner/family), Discarge date (09/13/24) Discharge Care Plan Problem Pain Goals Pain controlled Instructions Take Rx medications, Notify MD of any issues DIMITRY ALEX CNM Sep 13, 2024 07:42
[2024-09-13 10:54] VITALS: BP 100/65; PULSE 87; RESP 15; TEMP 98.1; O2SAT 99
[2024-09-13 14:30] VITALS: BP 100/64; PULSE 82; RESP 16; TEMP 98.7; O2SAT 99
--- NOTE | 2024-09-13 14:52 | PRN ---
Misceleneous Note Note Note Called to evaluate patient on POD #2. Patient received a labor epidural followed by a primary c/section for nonreassuring heart tracing on 09/11. Patient reports uneventful recovery until this morning when she noted a relative "weakness" in her right leg compared to her left along with "abdominal bulging" on the right lower abdomen when she attempted to swing her right leg back onto the bed from a seated position. Patient able to bear weight and ambulate which she demonstrated to me. She reports that the feeling doesn't occur when standing or walking. I evaluated the patients' strength in her lower extremities and they are grossly normal. She doesn't demonstrate any abnormality of her stance or gait. I examined her abdomen and did not appreciate a hernia. I suspect that the symptoms are occuring when she is trying to engage her core abdominal muscles when lifting her leg from a seated position. I recommend she be evaluated for diastasis recti & be encouraged to continue to ambulate. Please re-consult anesthesiology if needed. ROSA DENNIS MD Sep 13, 2024 14:52
[2024-09-13 17:22] VITALS: BP 100/64; PULSE 82; RESP 16; TEMP 98.7; O2SAT 100
== END 2024-09-13 17:22 | disposition home or self-care (01) | DRG 539 ==
LOC: LDRP 14:35
PROVIDERS: ADMIT Obstetrics & Gynecology; ATTEND Obstetrics & Gynecology
PROC: 0UB70ZZ Excision of Bilateral Fallopian Tubes, Open Approach (ICD-10-PCS; 2024-09-11)
PROC: 10D00Z1 Extraction of Products of Conception, Low, Open Approach (ICD-10-PCS; principal; 2024-09-11 14:16)
DX: O69.81X0 Labor and delivery complicated by cord around neck, without compression, not applicable or unspecified (principal); R71.0 Precipitous drop in hematocrit; N83.8 Other noninflammatory disorders of ovary, fallopian tube and broad ligament; O61.9 Failed induction of labor, unspecified; O32.6XX0 Maternal care for compound presentation, not applicable or unspecified; O34.83 Maternal care for other abnormalities of pelvic organs, third trimester; O76 Abnormality in fetal heart rate and rhythm complicating labor and delivery; O77.0 Labor and delivery complicated by meconium in amniotic fluid; Z37.0 Single live birth; Z3A.40 40 weeks gestation of pregnancy
CPT/HCPCS: 36415; 59025; 62282; 76818; 80053; 80307; 81001; 81002; 82570; 84156; 84550; 85025; 85610; 85730; 86592; 86780; 86803; 86850; 86900; 86901; 94760; 94762; 96360; 96361; 96365; 96366; 96374; 96375; G0378; J0131; J1885; J2405; J2590

== ENCOUNTER 2025-04-28 04:41 | Emergency (ER) | payer MEDICAID ==
[~2025-04-28] VITALS: Ht 154.9 cm; Wt 101.7 kg
[~2025-04-28 04:41] MED LIST changes: -DOCO200C4 PO; +DOCU-94 PO; +FER325T PO; +HYDR-4072 PO; +IBUP-1456 PO
--- NOTE | 2025-04-28 06:36 | ED.PDOC ---
GI ASSESSMENT HPI Comments 30 y/o F, with PMHx of ovarian cyst presents to the ED for CC of abdominal pain. Patient states, she has been experiencing suprapubic abdominal pain at her c- section site onset, 2200 last night (04/27/25). Patient reports, to do "heavy lifting" while at work and heard x2 pops by her groin area. Patient denies nausea, vomiting, diarrhea, dysuria, or back pain. No other symptoms or modifying factors present at this time. Chief Complaint: Abdominal Pain Time Seen by MD: 06:30 Reviewed Notes: Nurses Notes, Medications, Allergies Allergies: Coded Allergies: NO KNOWN ALLERGIES (Unverified , 09/10/24) Home Meds Active Scripts Ferrous Sulfate (FERROUS SULFATE) 325 Mg Tb, 1 TAB PO EOD, #30 TAB 3 Refills Prov:DIMITRY ALEX [facility] 09/13/24 Ibuprofen (Ibuprofen) 800 Mg Tab, 800 MG PO TID PRN for 30 Days, #90 TAB Prov:DIMITRY ALEX [facility] 09/13/24 Hydrocodone-Acetaminophen (Hydrocodone/Acetaminophen 10-325 mg) 1 Tab Tab, 1 TAB PO Q6HPRN PRN for 7 Days, #28 TAB Prov:JESSENIA TONY DO 09/11/24 Docusate Sodium (Colace) 100 Mg Cap, 1 CAP PO BID, #60 CAP 2 Refills Prov:JESSENIA TONY DO 09/11/24 Reported Medications Vit W/ Ferrous Fumara ( One Daily) Daily Tab, 1 TAB PO DAILY, #90 TAB 3 Refills 09/07/24 Information Source: Patient Mode of Arrival: Ambulatory Timing: Hours Duration: Since onset Prehospital treatment: None Quality: None Vomitus: None Stool: Normal Severity: Moderate Recent: None Recent Hx of: None Pain Location: Suprapubic Modifying Factors: Nothing Associated sign and symptoms: Abdominal Pain Past Medical History PAST MEDICAL HISTORY: Denies Surgical History: 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): 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 Family History Family History: Unknown Social History Smoker: Non-Smoker Alcohol: Denies ETOH Use Drugs: Denies Drug Use Lives In: Home Constitutional: denies: chills, diaphoresis, fatigue, fever, malaise, sweats, weakness, others EENTM: denies: blurred vision, double vision, ear bleeding, ear discharge, ear drainage, ear pain, ear ringing, eye pain, eye redness, hearing loss, mouth pain, mouth swelling, nasal discharge, nose bleeding, nose congestion, nose pain, photophobia, tearing, throat pain, throat swelling, voice changes, others Respiratory: denies: cough, hemoptysis, orthopnea, SOB at rest, shortness of breath, SOB with excertion, stridor, wheezing, others Cardiovascular: denies: chest pain, dizzy spells, diaphoresis, Dyspnea on exertion, edema, irregular heart beat, left arm pain, lightheadedness, palpitations, PND, syncope, others Gastrointestinal: reports: abdominal pain; denies: abdomen distended, blood streaked bowels, constipated, diarrhea, dysphagia, difficulty swallowing, hematemesis, melena, nausea, poor appetite, poor fluid intake, rectal bleeding, rectal pain, vomiting, others Genitourinary: denies: abnormal vagina bleeding, burning, dyspareunia, dysuria, flank pain, frequency, hematuria, incontinence, pain, , vagina discharge, urgency, others Neurological: denies: dizziness, fainting, headache, left sided numbness, left sided weakness, numbness, paresthesia, pre-existing deficit, right sided numbness, right sided weakness, seizure, speech problems, tingling, tremors, weakness, others Musculoskeletal: denies: back pain, gout, joint pain, joint swelling, muscle pain, muscle stiffness, neck pain, others Integumetry: denies: bruises, change in color, change in hair/nails, dryness, laceration, lesions, lumps, rash, wounds, others Allergic/Immunocompromised: denies: Difficulty Healing, Frequent Infections, Hives, Itching, others Hematologic/Lymphatic: denies: anemia, blood clots, easy bleeding, easy bruising, swollen glands, others Endocrine: denies: excessive hunger, excessive sweating, excessive thirst, excessive urination, flushing, intolerance to cold, intolerance to heat, unexplained weight gain, unexplained weight loss, others Psychiatric: denies: anxiety, bipolar disorder, depression, hopeless, panic disorder, schizophrenia, sleepless, suicidal, others All Other Systems: Reviewed and Negative Physical Exam General Appearance: Moderate Distress HEENT: Normal ENT Inspection, Pharynx Normal, TMs Normal Neck: Full Range of Motion, Non-Tender, Normal, Normal Inspection Respiratory: Chest Non-Tender, Lungs Clear, No Accessory Muscle Use, No Respiratory Distress, Normal Breath Sounds Cardiovascular: No Edema, No JVD, No Murmur, No Gallop, Normal Peripheral Pulses, Regular Rate/Rhythm Breast Exam: Deferred Gastrointestinal: No Organomegaly, Non Tender, No Pulsatile Mass, Normal Bowel Sounds, Soft Genitalia: Deferred Pelvic: Deferred Rectal: Deferred Extremities: No calf tenderness, Normal capillary refill, Normal inspection, Normal range of motion, Non-tender, No pedal edema Musculoskeletal : Apperance: Normal Neurologic: Alert, graphic coordinator II-XII nml as Tested, No Motor Deficits, Normal Affect, Normal Mood, No Sensory Deficits Cerebellar Function: Normal Reflexes: Normal Skin: Dry, Normal Color, Warm Peripheral Pulses: 3+ Radial (R), 3+ Radial (L) Lymphatic: No Adenopathy Was a procedure done? Was a procedure done?: No GI differential Dx Differential Diagnosis: Constipation, Diverticular disease, Esophagitis, Gastritis/PUD, Gastroenteritis, Ovarian cyst/torsion, PID X-Ray, Labs, Meds, VS Vital Signs Date Time Temp Pulse Resp B/P (MAP) Pulse Ox O2 Delivery O2 Flow Rate FiO2 04/28/25 04:42 97.7 75 16 120/81 97 97.7 Patient alert. Complaining of suprapubic discomfort. Had a done seven months ago. Vitals stable. Answering questions. Abdomen is soft nontender. Ambulating. Explained to patient. Continue monitoring. Time of 1ST Reevaluation: 07:00 Reevaluation 1ST: Unchanged Patient Education/Counseling: Diagnosis, Treatment Family Education/Counseling: No Family Present SEPSIS Sepsis Screen Date sepsis recognized/suspect: Apr 28, 2025 Time Sepsis recognized/suspect: 0442 Recent Procedure: No On Antibiotic Therapy: No Respiratory Rate >20: No Heart Rate >90: No Temp<36 C (96.8 F) or >38.3 C: No SBP <90 or MAP <65 mmHG: No New Acute Mental Status Change: No Is the patient on CPAP, BIPAP,: No Physician Orders Test, Urine (04/28/25 04:47) Urinalysis (04/28/25 04:47) Complete Blood Count (04/28/25 06:34) Hydrocodone-Acet 10/325mg Tab ([facility] 10/ (04/28/25 06:45) Vital Signs Date Time Temp Pulse Resp B/P (MAP) Pulse Ox O2 Delivery O2 Flow Rate FiO2 04/28/25 04:42 97.7 75 16 120/81 97 97.7 Departure 1 Departure Time of Disposition: 06:38 Impression: Primary Impression: Muscle strain Disposition: 01 HOME / SELF CARE / HOMELESS Condition: Good Discharged With: Self Critical Care Note Critical Care Time?: No Stability Stability form required: No Heart Score Heart Score: Heart Score Response (Comments) Value History N/A 0 EKG N/A 0 Age N/A 0 Risk Factors N/A 0 Troponin N/A 0 Total 0 I personally scribed for TIFFANIE TOUSSAINT MD ([email or web address]) on 04/28/25 at 06:36. E lectronically submitted by Barbara Infante ([email or web address]). I personally scribed for TIFFANIE TOUSSAINT MD ([email or web address]) on 04/28/25 at 06:37. Electronically submitted by Barbara Infante ([email or web address]). TIFFANIE TOUSSAINT MD Apr 28, 2025 06:36
[2025-04-28 07:30] LABS: Hemoglobin 12.7 g/dL (12.2-16.2); Nucleated Red Blood Cells % 0.1 %
[2025-04-28 07:33] LABS: Hematocrit 39.3 % (36.0-46.0); Mean Corpuscular Hemoglobin 23.1 pg (28.0-32.0); Mean Corpuscular Volume 71.2 fL (80.0-100.0)
[2025-04-28] MEDS: HYDROcodone-ACET 10/325MG TAB PO ONE (09:00)
[2025-04-28 09:09] VITALS: BP 118/58; PULSE 61; RESP 15; TEMP 97.6; O2SAT 99
[2025-04-28 10:00] LABS: Urine Protein, UAD TRACE (Negative)
== END 2025-04-28 10:42 | disposition home or self-care (01) ==
LOC: ER 04:41
DX: T14.8XXA Other injury of unspecified body region, initial encounter (principal); X58.XXXA Exposure to other specified factors, initial encounter; Y93.89 Activity, other specified; Y92.89 Other specified places as the place of occurrence of the external cause; Y99.8 Other external cause status
CPT/HCPCS: 36415; 81003; 81025; 85025